=== PATIENT | female | born 1935 | race Caucasian/White ===

== ENCOUNTER → 2016-12-15 | Outpatient (CLI) | payer MEDICARE, OTHER ==
--- NOTE | 2016-12-15 11:37 | RADRPT ---
PROCEDURE: US Abdomen (right upper quadrant). CLINICAL INDICATION: Right upper quadrant abdomen pain. Hepatitis. Chronic renal failure. TECHNIQUE: Multiple real-time longitudinal and transverse images of the right upper quadrant of th e abdomen were acquired utilizing a curved array transducer. Images were reviewed on a high-resoluti on PACS workstation. COMPARISON: None FINDINGS: The liver is normal in size and normal in echogenicity. There is no focal hepatic lesion. There is a gallstone in the gallbladder. There is no gallbladder wall thickening or fluid around th e gallbladder. The bile ducts are normal with the common bile duct measuring 4.8 mm in diameter. There is a cyst anteriorly in the body of the pancreas measuring 1.2 x 1.0 x 1.2 cm. The pancreas i s otherwise unremarkable. No free fluid is present. The right kidney measures 8.2 cm. There is no right renal mass or hydronephrosis. Right renal pare nchymal thickness is normal. The right kidney is increased in echogenicity consistent with medical renal disease. IMPRESSION: 1. Gallstone in the gallbladder. No evidence of cholecystitis. 2. Cyst anteriorly in the body of the pancreas measuring 1.2 cm. Further evaluation with CT scan s hould be considered. 3. Increased echogenicity of the right kidney consistent with medical renal disease. RPTAT: QQ .Robert Lind MD, Date Time Electronically viewed and signed by .Robert Lind MD, on 12/15/2016 11:37 .R/
== END | disposition home or self-care (01) ==
LOC: U/S 09:35
PROVIDERS: ATTEND Internal Medicine Nephrology
DX: R10.11 Right upper quadrant pain (principal); K75.9 Inflammatory liver disease, unspecified; N18.9 Chronic kidney disease, unspecified; K80.80 Other cholelithiasis without obstruction
CPT/HCPCS: 76705